=== PATIENT | female | born 1990 | race Caucasian/White ===

== ENCOUNTER 2018-03-21 20:38 | Emergency (ER) | payer MEDICAID ==
[~2018-03-21] VITALS: Ht 154.9 cm; Wt 51.7 kg
[~2018-03-21 20:38] MED LIST: POLY17PO10 PO
[2018-03-21 22:40] VITALS: BP 118/60
== END 2018-03-21 22:41 | disposition home or self-care (01) ==
LOC: ER 20:39
DX: G47.00 Insomnia, unspecified (principal); R63.0 Anorexia; F15.10 Other stimulant abuse, uncomplicated; F17.200 Nicotine dependence, unspecified, uncomplicated; F12.10 Cannabis abuse, uncomplicated; Z59.0 Homelessness; Z98.890 Other specified postprocedural states; Z79.899 Other long term (current) drug therapy
CPT/HCPCS: 99283

== ENCOUNTER 2019-11-03 11:14 | Inpatient (IN) | payer MEDICAID ==
[~2019-11-03] VITALS: Ht 167.6 cm; Wt 59.0 kg
[2019-11-03] MEDS ORDERED: dexamethasone sod phosphate 10mg/ml inj IV STA (12:44)
[2019-11-03] MEDS ORDERED: CLINDAMYCIN/D5W 900mg/50ml 50 ML IV ONE (12:45)
[2019-11-03] MEDS ORDERED: normal saline 1000ML IV soln IV ONE (12:50)
[2019-11-03] MEDS ORDERED: ketorolac tromethamine 15mg/ml inj. IV ONE (12:50)
[2019-11-03 13:03] LABS: CLARITY,URINE SLIGHTLY CLOUDY (Clear); COLOR,URINE YELLOW (Yellow); GLUCOSE, URINE NEGATIVE (Neg); KETONES,URINE 40 mg/dl (Neg); LEUKOCYTE ESTERASE ,URINE NEGATIVE (Neg); NITRITES, URINE NEGATIVE (Neg); OCCULT BLOOD,URINE NEGATIVE (Neg); PROTEIN,URINE NEGATIVE (Neg); UROBILINOGEN,URINE 0.2 E.U/dL (0.2-1.0)
[2019-11-03 13:04] LABS: UA COLLECTION TYPE CLN CATCH MIDSTREAM
[2019-11-03 13:09] LABS: BACTERIA,URINE 1+ /HPF (Neg); COARSE GRANULAR CAST 0-3 /LPF (NEGATIVE); MUCUS STRANDS MANY /LPF (Neg); RBC,URINE 0-2 /HPF (0-2); SQUAMOUS EPITHELIAL CELL,UR MODERATE /LPF (FEW); WBC,URINE 0-4 /HPF (0-4)
[2019-11-03 13:09] LABS: ALANINE AMINOTRANSFERASE 22 U/L (12-78); ALBUMIN 3.9 G/DL (3.4-5.0); ALBUMIN/GLOBULIN RATIO 1.1 (1.1-1.5); ALKALINE PHOSPHATASE 86 IU/L (46-116); ANION GAP 10 (8-16); ASPARTATE AMINO TRANSFERASE 14 U/L (10-37); BILIRUBIN,TOTAL 0.8 MG/DL (0.1-1.0); BLOOD UREA NITROGEN 17 MG/DL (7-18); BUN/CREATININE RATIO 18.9 (6.6-38.0); CALCIUM 9.7 MG/DL (8.5-10.1); CHLORIDE 99 MMOL/L (99-107); GLUCOSE 81 MG/DL (70-104); POTASSIUM 3.6 MMOL/L (3.5-5.1); SODIUM 136 MMOL/L (135-145); TOTAL CARBON DIOXIDE 27.2 MMOL/L (24-32); TOTAL PROTEIN 7.5 G/DL (6.4-8.2); eGFR 73 ML/MIN
[2019-11-03 13:10] LABS: BASOPHILS # (AUTO) 0.1 X10'3 (0-0.2); BASOPHILS % (AUTO) 0.3 % (0-1); EOSINOPHILS % (AUTO) 0 % (0-6); HEMATOCRIT 40.7 % (35.0-45.0); HEMOGLOBIN 13.9 g/dl (12.0-16.0); LYMPHOCYTES # (AUTO) 0.2 X10'3 (1.1-4.8); LYMPHOCYTES % (AUTO) 0.6 % (21-51); MEAN CORPUSCULAR HEMOGLOBIN 31.1 PG (27.0-31.0); MEAN CORPUSCULAR HGB CONC 34.2 g/dL (33.0-36.5); MEAN CORPUSCULAR VOLUME 91.1 FL (78-98); MEAN PLATELET VOLUME 7.5 FL (7.4-10.4); MONOCYTES # (AUTO) 0.7 X10'3 (0-0.9); MONOCYTES % (AUTO) 1.9 % (2-12); NEUTROPHILS # (AUTO) 33.7 X10'3 (1.8-7.7); NEUTROPHILS % (AUTO) 97.2 % (42-75); PLATELET COUNT 444 X10'3 (140-440); RED BLOOD COUNT 4.47 X10'6 (4.20-5.60); RED CELL DISTRIBUTION WIDTH 12.5 % (11.5-14.5)
[2019-11-03 13:14] LABS: WHITE BLOOD COUNT 34.7 X10'3 (4.5-11.0)
[2019-11-03] MEDS ORDERED: acetaminophen 325mg tablet PO ONE (13:25)
[2019-11-03 14:00] LABS: TOTAL CELLS COUNTED 100
[2019-11-03 14:02] LABS: PLATELET ESTIMATE INCREASED
[2019-11-03 14:03] LABS: TOXIC GRANULATION 1+
[2019-11-03] MEDS ORDERED: iohexol 300mg/ml 100ml inj. ONE (14:11)
--- NOTE | 2019-11-03 14:20 | NUR ---
Pt transported to CT scan via w/c.
[2019-11-03] MEDS ORDERED: NO HOME MEDS (16:02)
[2019-11-03] MEDS ORDERED: potassium Cl 20 mEq SR tablet PO PRN ×2 (16:45)
[2019-11-03] MEDS ORDERED: magnesium hydroxide 30ml (MOM) UD suspension PO PRN (16:45)
[2019-11-03] MEDS ORDERED: magnesium 4gm in 100ml NS 100 ML IV PRN (16:45)
[2019-11-03] MEDS ORDERED: ondansetron/PF 4mg/2ml inj IV PRN (16:45)
[2019-11-03] MEDS ORDERED: morphine 2 MG/ML inj. syringe IV PRN ×2 (16:45)
[2019-11-03] MEDS ORDERED: acetaminophen 325mg tablet PO PRN ×2 (16:45)
[2019-11-03] MEDS ORDERED: potassium CL 10mEq/100ml bag 100 ML IV PRN ×2 (16:45)
[2019-11-03] MEDS ORDERED: magnesium 2GM in 50ml NS 50 ML IV PRN (16:45)
[2019-11-03] MEDS ORDERED: mag hydrox/Alum hydrox/simeth 30ml oral suspension PO PRN (16:45)
[2019-11-03] MEDS ORDERED: normal saline 1000ml 1,000 ML IV ONE (16:45)
[2019-11-03] MEDS: HYDROcodone/acetaminophen 5mg/325mg tablet PO PRN ×2 (18:14→22:26)
[2019-11-03 19:18] LABS: URINE HCG NEGATIVE (NEG)
[2019-11-03] MEDS ORDERED: CefTRIAXone/D5W-Rocephin 1gm 50 ML IV ONE (19:40)
[2019-11-03 20:00] VITALS: BP 94/52
[2019-11-03] MEDS ORDERED: famotidine 10mg tablet PO SCH (20:00)
[2019-11-03] MEDS: K and/or MAG REPLACEMENT MC SCH (20:00)
--- NOTE | 2019-11-03 21:00 | NUR ---
UNABLE TO SCAN [facility]. PHARMACY NOTIFIED MEDICATION WRAPER SENT TO PHARMACY TO CORRECT ISSUE
[2019-11-03] MEDS: lactobacillus rhamnosus 10,000 MMU CELLS/CAPSULE PO SCH (21:02)
[2019-11-03] MEDS: ketorolac trometh. 30mg/ml inj. IV PRN (21:05)
[2019-11-03] MEDS ORDERED: famotidine 10mg tablet PO ONE ×2 (21:15→21:20)
--- NOTE | 2019-11-03 22:00 | NUR ---
Patient has a rash on bilateral anterior thighs. [facility], req [facility] consult. Placed in contact precautions until contagiousness ruled out.
[2019-11-03] MEDS: clindamycin 300mg/D5W 50mL 50 ML IV SCH (22:29)
[2019-11-04] VITALS (9 sets, daily range): BP systolic 73–96; BP diastolic 37–62
--- NOTE | 2019-11-04 00:33 | NUR ---
NOTIFIED OF COCCI IN CHAINS IN AROBIC AND ANAROBIC BOTTLES
[2019-11-04] MEDS: clindamycin 300mg/D5W 50mL 50 ML IV SCH ×4 (02:07→18:23)
[2019-11-04] MEDS: HYDROcodone/acetaminophen 5mg/325mg tablet PO PRN ×2 (02:07→17:57)
[2019-11-04 05:18] LABS: ALBUMIN 2.5 G/DL (3.4-5.0); ANION GAP 7 (8-16); BLOOD UREA NITROGEN 18 MG/DL (7-18); BUN/CREATININE RATIO 18.8 (6.6-38.0); CALCIUM 8.5 MG/DL (8.5-10.1); CHLORIDE 103 MMOL/L (99-107); CREATININE 0.96 MG/DL (0.40-0.90); GLUCOSE 104 MG/DL (70-104); MAGNESIUM 1.4 MG/DL (1.5-2.4); POTASSIUM 3.5 MMOL/L (3.5-5.1); SODIUM 134 MMOL/L (135-145); TOTAL CARBON DIOXIDE 23.8 MMOL/L (24-32); eGFR 68 ML/MIN
[2019-11-04 05:32] LABS: BASOPHILS % (AUTO) 0.1 % (0-1); EOSINOPHILS % (AUTO) 0 % (0-6); HEMATOCRIT 32.8 % (35.0-45.0); HEMOGLOBIN 11.1 g/dl (12.0-16.0); LYMPHOCYTES # (AUTO) 0.4 X10'3 (1.1-4.8); LYMPHOCYTES % (AUTO) 1.1 % (21-51); MEAN CORPUSCULAR HEMOGLOBIN 31.1 PG (27.0-31.0); MEAN CORPUSCULAR VOLUME 91.4 FL (78-98); MEAN PLATELET VOLUME 7.5 FL (7.4-10.4); MONOCYTES # (AUTO) 0.6 X10'3 (0-0.9); MONOCYTES % (AUTO) 1.7 % (2-12); NEUTROPHILS # (AUTO) 33.4 X10'3 (1.8-7.7); NEUTROPHILS % (AUTO) 97.1 % (42-75); PLATELET COUNT 335 X10'3 (140-440); RED BLOOD COUNT 3.58 X10'6 (4.20-5.60); RED CELL DISTRIBUTION WIDTH 12.5 % (11.5-14.5)
--- NOTE | 2019-11-04 06:15 | NUR ---
Patient in room [facility] 344. I have received report from KARL Navarro and had the opportunity to ask questions and assume patient care.
--- NOTE | 2019-11-04 06:38 | NUR ---
Problems reprioritized. Patient report given, questions answered & plan of care reviewed with KARL Benson.
[2019-11-04 06:46] LABS: WHITE BLOOD COUNT 34.5 X10'3 (4.5-11.0)
--- NOTE | 2019-11-04 07:13 | NUR ---
GOT A CRITICAL WBC OF 34.5, PAGED DR SANCHEZ, AWAITING CALL BACK PAGER ID: [phone] MESSAGE: Tay NAZARIO RM 344B: PATIENT HAS A CRITICAL WBC AT 34.5. THANK BEST [phone]
[2019-11-04] MEDS: K and/or MAG REPLACEMENT MC SCH ×2 (08:00→20:00)
[2019-11-04] MEDS: lactobacillus rhamnosus 10,000 MMU CELLS/CAPSULE PO SCH ×2 (08:06→19:34)
[2019-11-04] MEDS: ibuprofen tablet 400 MG TABLET PO SCH ×3 (08:07→19:34)
[2019-11-04] MEDS: magnesium Cl slow-release 64mg tablet PO PRN ×2 (08:08→22:23)
[2019-11-04] MEDS: famotidine 10mg tablet PO SCH ×2 (08:28→19:35)
--- NOTE | 2019-11-04 08:29 | NUR ---
YUMIKO CARBAJAL MED ADMINISTRATION: MED WOULD NOT SCAN PER PHARMACY: 2 RN VERIFIED DOSE TO GIVE TWO TABS 10MG EACH TO MAKE 20 MG
[2019-11-04 08:38] LABS: PLATELET ESTIMATE NORMAL; TOTAL CELLS COUNTED 100
[2019-11-04 08:40] LABS: TOXIC GRANULATION 1+; TOXIC VACUOLATION FEW
--- NOTE | 2019-11-04 09:33 | NUR ---
PATIENT'S BP IS LOW 80/50 MANUALLY, TEMP IS 99.[address] SANCHEZ PAGER ID: [phone] MESSAGE: Tay NAZARIO 344B: LOW BP: PATIENT'S BP IS TRENDING DOWN FROM 100'S TO NOW AT 80'S, TEMP 99.4 AND WBC 34.5. PLS CALL THANKS BEST [phone]
--- NOTE | 2019-11-04 09:51 | NUR ---
CRITICAL LAB: GRAM POSITIVE COCCI IN PAIRS AND CHAINS IN AREOBIC BOTTLE FROM LT ARM AT 12 HOURS: 3RD POSITIVE BOTTLE TODAY, PAGED DR SANCHEZ, AWAITING CALL BACK PAGER ID: [phone] MESSAGE: Dominguez NAZARIO 344B: CRITICAL LAB: GRAM POSITIVE COCCI IN PAIRS AND CHAINS IN AREOBIC BOTTLE FROM LT ARM AT 12 HOURS: 3RD POSITIVE BOTTLE TODAY
[2019-11-04] MEDS ORDERED: normal saline 1000ml 1,000 ML IVB ONE ×2 (11:52→19:08)
[2019-11-04] MEDS ORDERED: normal saline 1000ml 1,000 ML IV ONE ×3 (11:55→18:10)
[2019-11-04] MEDS: vancomycin/NS 1 GM ADD-VANTAGE 250 ML IV SCH (12:50)
[2019-11-04] MEDS ORDERED: Permethrin Cream 60gm TP ONE (17:20)
[2019-11-04] MEDS ORDERED: dexamethasone sod phosphate 10mg/ml inj IV STA (18:14)
[2019-11-04] MEDS ORDERED: iohexol 300mg/ml 100ml inj. ONE (18:38)
--- NOTE | 2019-11-04 18:45 | NUR ---
Patient in room [facility] 344. I have received report from KARL Benson and had the opportunity to ask questions and assume patient care.
[2019-11-04] MEDS: normal saline 1000ml 1,000 ML IV SCH (19:09)
[2019-11-04] MEDS: CefTRIAXone/D5W-Rocephin 1gm 50 ML IV SCH (19:10)
--- NOTE | 2019-11-04 19:29 | NUR ---
PATIENT'S 0700 BP WAS 83/55 RETOOK AND IT WAS 83/46 AND 79/ 49 TOOK MANUALLY IT WAS 80 OB Addendum: 11/04/19 at 1944 by Kelley Bravo RN 80/50. PAGED DR SANCHEZ, HE CALLED AND ORDERED A 2 LITTER BOLUS AND VANCO. GOT THE BOLUS STARTED PUT PATIENTS HEAD DOWN, RETOOK VITALS AT 1100 IT WAS 88/54. WAS RUNNING VANCO AND BOLUS AT SAME TIME HAD TO LOWER VTBI OF BOLUS SO VANCO WOULD RUN WITHOUT PROBLEM. IN THE 1400 HOUR I ATTEMPTED TO START ANOTHER IV TO RUN ABX SEPARATE FROM BOLUS WITHOUT SUCCESS, GOT PICC NURSE TO PACE NEW IV. LAST BOLUS ENDED AROUND [address] SANCHEZ, HE CALLED RIGHT BACK HE ORDERED ANOTHER BOLUS, I ASKED HIM TO COME SEE THE PATIENT AND PASSED THE INFORMATION TO MY CHARGE NURSE, DR SANCHEZ CAME TO ASSESS PATIENT HE ORDERED DECADRON AND CT OF HEAD AND NECK WITH CONTRAST. PATIENT TAKEN TO CT AND I PASSED PATIENT TO KARL ENGEL.
[2019-11-04] MEDS ORDERED: normal saline 1000ml 1,000 ML IVB PRN (20:45)
--- NOTE | 2019-11-04 20:49 | NUR ---
Rosalind from Dr. Villavicencio in Radiologist called to speak with patients MD. Message hand delivered to Dr. Garcia for him to call the radiologist back.
[2019-11-04] MEDS: ketorolac trometh. 30mg/ml inj. IV PRN (22:32)
[2019-11-05] MEDS: vancomycin/NS 1 GM ADD-VANTAGE 250 ML IV SCH ×2 (01:17→13:31)
[2019-11-05] MEDS: clindamycin 300mg/D5W 50mL 50 ML IV SCH ×4 (03:17→19:56)
[2019-11-05] MEDS: normal saline 1000ml 1,000 ML IV SCH ×4 (03:17→21:37)
[2019-11-05 03:30] VITALS: BP 87/53
[2019-11-05] MEDS ORDERED: normal saline 500ml IV soln 500 ML IV ONE (03:35)
[2019-11-05 04:48] VITALS: BP 90/58
[2019-11-05 05:02] LABS: BASOPHILS % (AUTO) 0 % (0-1); EOSINOPHILS % (AUTO) 0 % (0-6); HEMATOCRIT 31.1 % (35.0-45.0); HEMOGLOBIN 10.5 g/dl (12.0-16.0); LYMPHOCYTES # (AUTO) 0.4 X10'3 (1.1-4.8); LYMPHOCYTES % (AUTO) 1.2 % (21-51); MEAN CORPUSCULAR HEMOGLOBIN 31.3 PG (27.0-31.0); MEAN CORPUSCULAR HGB CONC 33.8 g/dL (33.0-36.5); MEAN CORPUSCULAR VOLUME 92.7 FL (78-98); MEAN PLATELET VOLUME 7.6 FL (7.4-10.4); MONOCYTES # (AUTO) 0.4 X10'3 (0-0.9); MONOCYTES % (AUTO) 1.4 % (2-12); NEUTROPHILS % (AUTO) 97.4 % (42-75); PLATELET COUNT 261 X10'3 (140-440); RED BLOOD COUNT 3.36 X10'6 (4.20-5.60); RED CELL DISTRIBUTION WIDTH 12.9 % (11.5-14.5)
[2019-11-05 05:09] LABS: WHITE BLOOD COUNT 29.8 X10'3 (4.5-11.0)
[2019-11-05 05:20] LABS: ANION GAP 7 (8-16); BLOOD UREA NITROGEN 15 MG/DL (7-18); BUN/CREATININE RATIO 19.5 (6.6-38.0); CALCIUM 8.4 MG/DL (8.5-10.1); CHLORIDE 111 MMOL/L (99-107); CREATININE 0.77 MG/DL (0.40-0.90); GLUCOSE 133 MG/DL (70-104); POTASSIUM 4.2 MMOL/L (3.5-5.1); SODIUM 139 MMOL/L (135-145); TOTAL CARBON DIOXIDE 20.9 MMOL/L (24-32); eGFR 87 ML/MIN
--- NOTE | 2019-11-05 06:23 | NUR ---
Problems reprioritized. Patient report given, questions answered & plan of care reviewed with KARL Baumann.
[2019-11-05 06:31] LABS: PLATELET ESTIMATE NORMAL; TOTAL CELLS COUNTED 100
[2019-11-05 06:32] LABS: BURR CELLS 2+; SCHISTOCYTES FEW
[2019-11-05 06:33] LABS: TOXIC GRANULATION 1+; TOXIC VACUOLATION FEW
[2019-11-05] MEDS: lactobacillus rhamnosus 10,000 MMU CELLS/CAPSULE PO SCH ×2 (07:41→19:56)
[2019-11-05] MEDS: famotidine 10mg tablet PO SCH ×2 (07:41→19:56)
[2019-11-05] MEDS: ibuprofen tablet 400 MG TABLET PO SCH ×3 (07:42→18:04)
[2019-11-05 07:53] VITALS: BP 93/72
[2019-11-05] MEDS: K and/or MAG REPLACEMENT MC SCH ×2 (08:00→20:00)
[2019-11-05 09:30] VITALS: BP 98/60
[2019-11-05 11:47] VITALS: BP 95/57
--- NOTE | 2019-11-05 14:54 | NUR ---
I have reviewed and agree with all interventions, assessments performed and documented by KARL Ozuna
[2019-11-05] MEDS: ketorolac trometh. 30mg/ml inj. IV PRN ×2 (15:33→21:46)
[2019-11-05] MEDS: CefTRIAXone/D5W-Rocephin 1gm 50 ML IV SCH (18:05)
[2019-11-05 18:15] VITALS: BP 108/74
--- NOTE | 2019-11-05 18:29 | NUR ---
Patient in room [facility] 344. I have received report from Sulma RN and Ibis RN and had the opportunity to ask questions and assume patient care.
--- NOTE | 2019-11-05 18:38 | NUR ---
Problems reprioritized. Patient report given, questions answered & plan of care reviewed with Bonita BARAJAS.
[2019-11-05] MEDS: HYDROcodone/acetaminophen 5mg/325mg tablet PO PRN (19:56)
[2019-11-05] MEDS ORDERED: diphenhydrAMINE 50 mg/ml inj IV PRN (21:05)
[2019-11-05] MEDS: diphenhydrAMINE 25mg capsule PO PRN (21:15)
[2019-11-05] MEDS: Melatonin 3mg tablet PO SCH (21:15)
[2019-11-06] MEDS: vancomycin/NS 1 GM ADD-VANTAGE 250 ML IV SCH (00:07)
[2019-11-06 00:15] VITALS: BP 112/71
[2019-11-06] MEDS ORDERED: VANCOMYCIN LEVEL IV ONE (00:30)
[2019-11-06 01:02] LABS: BASOPHILS % (AUTO) 0.2 % (0-1); EOSINOPHILS % (AUTO) 0.1 % (0-6); LYMPHOCYTES # (AUTO) 1.2 X10'3 (1.1-4.8); LYMPHOCYTES % (AUTO) 5.2 % (21-51); MEAN CORPUSCULAR HEMOGLOBIN 31.2 PG (27.0-31.0); MEAN CORPUSCULAR HGB CONC 34.5 g/dL (33.0-36.5); MEAN CORPUSCULAR VOLUME 90.4 FL (78-98); MEAN PLATELET VOLUME 8.3 FL (7.4-10.4); MONOCYTES # (AUTO) 0.3 X10'3 (0-0.9); MONOCYTES % (AUTO) 1.5 % (2-12); NEUTROPHILS # (AUTO) 20.6 X10'3 (1.8-7.7); PLATELET COUNT 260 X10'3 (140-440); RED BLOOD COUNT 3.21 X10'6 (4.20-5.60); WHITE BLOOD COUNT 22.1 X10'3 (4.5-11.0)
[2019-11-06 01:13] LABS: ANION GAP 7 (8-16); BLOOD UREA NITROGEN 18 MG/DL (7-18); BUN/CREATININE RATIO 25.4 (6.6-38.0); CALCIUM 8.4 MG/DL (8.5-10.1); CHLORIDE 109 MMOL/L (99-107); CREATININE 0.71 MG/DL (0.40-0.90); GLUCOSE 90 MG/DL (70-104); MAGNESIUM 1.6 MG/DL (1.5-2.4); POTASSIUM 3.8 MMOL/L (3.5-5.1); SODIUM 138 MMOL/L (135-145); TOTAL CARBON DIOXIDE 21.8 MMOL/L (24-32); VANCOMYCIN,TROUGH 7.9 UG/ML (6.0-14.0); eGFR > 90 ML/MIN
[2019-11-06] MEDS: clindamycin 300mg/D5W 50mL 50 ML IV SCH ×2 (02:29→08:42)
[2019-11-06] MEDS: HYDROcodone/acetaminophen 5mg/325mg tablet PO PRN (02:39)
[2019-11-06] MEDS: diphenhydrAMINE 25mg capsule PO PRN ×3 (02:39→19:03)
--- NOTE | 2019-11-06 06:37 | NUR ---
Problems reprioritized. Patient report given, questions answered & plan of care reviewed with KARL Corona.
--- NOTE | 2019-11-06 06:40 | NUR ---
Patient in room [facility] 344. I have received report from Bonita BARAJAS and had the opportunity to ask questions and assume patient care.
[2019-11-06 07:05] VITALS: BP 109/75
[2019-11-06] MEDS: K and/or MAG REPLACEMENT MC SCH ×2 (07:36→19:14)
[2019-11-06] MEDS: lactobacillus rhamnosus 10,000 MMU CELLS/CAPSULE PO SCH ×2 (08:42→19:03)
[2019-11-06] MEDS: ibuprofen tablet 400 MG TABLET PO SCH ×3 (08:42→17:09)
[2019-11-06] MEDS: famotidine 10mg tablet PO SCH ×2 (08:42→19:03)
[2019-11-06] MEDS: ketorolac trometh. 30mg/ml inj. IV PRN ×2 (08:45→19:04)
[2019-11-06 11:11] VITALS: BP 114/77
[2019-11-06] MEDS ORDERED: iohexol 300mg/ml 100ml inj. ONE (11:21)
[2019-11-06 18:00] VITALS: BP 107/79
--- NOTE | 2019-11-06 18:32 | NUR ---
Problems reprioritized. Patient report given, questions answered & plan of care reviewed with Sabino BARAJAS.
[2019-11-06] MEDS: Melatonin 3mg tablet PO SCH (21:32)
[2019-11-07] VITALS: BP 110/80
[2019-11-07] MEDS: HYDROcodone/acetaminophen 5mg/325mg tablet PO PRN (01:59)
[2019-11-07 06:22] LABS: BASOPHILS % (AUTO) 0.3 % (0-1); EOSINOPHILS # (AUTO) 0.1 X10'3 (0-0.9); EOSINOPHILS % (AUTO) 0.7 % (0-6); HEMATOCRIT 29.4 % (35.0-45.0); HEMOGLOBIN 10.3 g/dl (12.0-16.0); LYMPHOCYTES # (AUTO) 1.5 X10'3 (1.1-4.8); LYMPHOCYTES % (AUTO) 15.4 % (21-51); MEAN CORPUSCULAR HGB CONC 35.1 g/dL (33.0-36.5); MEAN PLATELET VOLUME 7.9 FL (7.4-10.4); MONOCYTES # (AUTO) 0.5 X10'3 (0-0.9); MONOCYTES % (AUTO) 4.9 % (2-12); NEUTROPHILS # (AUTO) 7.7 X10'3 (1.8-7.7); NEUTROPHILS % (AUTO) 78.7 % (42-75); PLATELET COUNT 283 X10'3 (140-440); RED BLOOD COUNT 3.23 X10'6 (4.20-5.60); RED CELL DISTRIBUTION WIDTH 13.1 % (11.5-14.5); WHITE BLOOD COUNT 9.8 X10'3 (4.5-11.0)
[2019-11-07 06:28] LABS: ANION GAP 7 (8-16); BLOOD UREA NITROGEN 16 MG/DL (7-18); BUN/CREATININE RATIO 23.2 (6.6-38.0); CALCIUM 8.4 MG/DL (8.5-10.1); CHLORIDE 107 MMOL/L (99-107); CREATININE 0.69 MG/DL (0.40-0.90); GLUCOSE 71 MG/DL (70-104); MAGNESIUM 1.8 MG/DL (1.5-2.4); POTASSIUM 3.9 MMOL/L (3.5-5.1); SODIUM 138 MMOL/L (135-145); TOTAL CARBON DIOXIDE 23.6 MMOL/L (24-32); eGFR > 90 ML/MIN
--- NOTE | 2019-11-07 06:28 | NUR ---
Problems reprioritized. Patient report given, questions answered & plan of care reviewed with Tiffanie BARAJAS.
[2019-11-07 07:00] VITALS: BP 128/73
[2019-11-07] MEDS: K and/or MAG REPLACEMENT MC SCH ×2 (08:00→19:30)
[2019-11-07 08:36] LABS: PLATELET ESTIMATE NORMAL; TOTAL CELLS COUNTED 100
[2019-11-07] MEDS: levoFLOXACIN-Levaquin 500mg/D5 100 ML IV SCH (09:11)
[2019-11-07] MEDS: lactobacillus rhamnosus 10,000 MMU CELLS/CAPSULE PO SCH ×2 (09:12→19:19)
[2019-11-07] MEDS: ibuprofen tablet 400 MG TABLET PO SCH (09:12)
[2019-11-07] MEDS: famotidine 10mg tablet PO SCH ×2 (09:12→19:19)
--- NOTE | 2019-11-07 11:00 | NUR ---
Pt. c/o rash getting worse although labs look clinically better. aware. This nurse's first day with pt. Called tele to see if pt. had anything significant occur on the monitor. tap and die maker technician stated HR 64 and pt. has been in SR with some sinus arrhythmias. MD and charge aware. Orders to DC tele monitor. Additional procalcitonin ordered. Pt. c/o upper abd. pain. MD aware- see new orders.
[2019-11-07] MEDS ORDERED: ibuprofen tablet 400 MG TABLET PO PRN (11:10)
[2019-11-07] MEDS: pantoprazole 40mg Tablet.DR PO SCH (11:30)
[2019-11-07 11:42] VITALS: BP 122/77
[2019-11-07 18:00] VITALS: BP 118/78
--- NOTE | 2019-11-07 18:35 | NUR ---
Patient in room [facility] 344. I have received report from KARL Moreno and had the opportunity to ask questions and assume patient care.
--- NOTE | 2019-11-07 18:56 | NUR ---
Gave report to Jin BARAJAS.
[2019-11-07] MEDS: diphenhydrAMINE 25mg capsule PO PRN (19:19)
[2019-11-07] MEDS: Melatonin 3mg tablet PO SCH (20:59)
[2019-11-07] MEDS: ketorolac tromethamine 15mg/ml inj. IV PRN (21:00)
[2019-11-08] VITALS: BP 116/70
[2019-11-08] MEDS ORDERED: VANCOMYCIN LEVEL IV ONE ×2 (00:30→12:30)
[2019-11-08 01:49] LABS: BASOPHILS % (AUTO) 0.5 % (0-1); EOSINOPHILS # (AUTO) 0.1 X10'3 (0-0.9); EOSINOPHILS % (AUTO) 0.9 % (0-6); HEMATOCRIT 29.9 % (35.0-45.0); HEMOGLOBIN 10.4 g/dl (12.0-16.0); LYMPHOCYTES # (AUTO) 1.8 X10'3 (1.1-4.8); LYMPHOCYTES % (AUTO) 20.1 % (21-51); MEAN CORPUSCULAR HEMOGLOBIN 31.2 PG (27.0-31.0); MEAN CORPUSCULAR HGB CONC 34.9 g/dL (33.0-36.5); MEAN CORPUSCULAR VOLUME 89.6 FL (78-98); MEAN PLATELET VOLUME 7.6 FL (7.4-10.4); MONOCYTES # (AUTO) 0.6 X10'3 (0-0.9); MONOCYTES % (AUTO) 6.3 % (2-12); NEUTROPHILS # (AUTO) 6.4 X10'3 (1.8-7.7); NEUTROPHILS % (AUTO) 72.2 % (42-75); PLATELET COUNT 337 X10'3 (140-440); RED BLOOD COUNT 3.34 X10'6 (4.20-5.60); RED CELL DISTRIBUTION WIDTH 12.9 % (11.5-14.5); WHITE BLOOD COUNT 8.8 X10'3 (4.5-11.0)
[2019-11-08 01:57] LABS: ANION GAP 7 (8-16); BLOOD UREA NITROGEN 14 MG/DL (7-18); BUN/CREATININE RATIO 20.3 (6.6-38.0); CALCIUM 8.4 MG/DL (8.5-10.1); CHLORIDE 107 MMOL/L (99-107); CREATININE 0.69 MG/DL (0.40-0.90); GLUCOSE 81 MG/DL (70-104); MAGNESIUM 1.9 MG/DL (1.5-2.4); POTASSIUM 3.9 MMOL/L (3.5-5.1); SODIUM 139 MMOL/L (135-145); TOTAL CARBON DIOXIDE 25.1 MMOL/L (24-32); VANCOMYCIN,TROUGH 11.1 UG/ML (6.0-14.0); eGFR > 90 ML/MIN
[2019-11-08 02:47] LABS: PLATELET ESTIMATE NORMAL; TOTAL CELLS COUNTED 100
--- NOTE | 2019-11-08 06:34 | NUR ---
Problems reprioritized. Patient report given, questions answered & plan of care reviewed with KARL Perry.
--- NOTE | 2019-11-08 06:34 | NUR ---
Patient in room [facility] 344. I have received report from Jin BARAJAS and had the opportunity to ask questions and assume patient care.
[2019-11-08 07:07] VITALS: BP 123/71
[2019-11-08] MEDS: lactobacillus rhamnosus 10,000 MMU CELLS/CAPSULE PO SCH (08:09)
[2019-11-08] MEDS: levoFLOXACIN-Levaquin 500mg/D5 100 ML IV SCH (08:10)
[2019-11-08] MEDS: famotidine 10mg tablet PO SCH (08:10)
[2019-11-08] MEDS: pantoprazole 40mg Tablet.DR PO SCH (08:10)
[2019-11-08] MEDS: ketorolac tromethamine 15mg/ml inj. IV PRN (08:19)
[2019-11-08 11:00] VITALS: BP 127/78
[2019-11-08] MEDS ORDERED: LEVO500T2 PO (11:14)
[2019-11-08] MEDS ORDERED: OMEP-297 PO (11:14)
[2019-11-08] MEDS ORDERED: ACET-2144 PO (11:14)
--- NOTE | 2019-11-08 12:30 | NUR ---
Pt Dc to home. Pt A & O and in no distress. pt packed all belongings and carried them out with her. pt verbalizes understanding of all DC orders and is aware that all meds are e-faxed to [facility]. Pt is wheeled out via wheelchair and her friend came to lobby to pick her up.
== END 2019-11-08 12:53 | disposition home or self-care (01) | DRG 720 ==
LOC: ER 11:15 → ED HOLD 17:14 → SUR 3N 20:04
PROVIDERS: ADMIT Hospitalist; ATTEND Internal Medicine
PROC: B0201ZZ Computerized Tomography (CT Scan) of Brain using Low Osmolar Contrast (ICD-10-PCS; principal; 2019-11-04)
DX: A41.9 Sepsis, unspecified organism (principal); R65.21 Severe sepsis with septic shock; L03.221 Cellulitis of neck; R13.10 Dysphagia, unspecified; R59.0 Localized enlarged lymph nodes; Z59.0 Homelessness
CPT/HCPCS: 36415; 70460; 70487; 70491; 76937; 80048; 80053; 80202; 81001; 81025; 83605; 83735; 84145; 85025; 87040; 87077; 87081; 87186; 96365; 96375; 99285; G0378; J0696; J1100; J1200; J1885; J1956; J2270; J2405; J3370; J3490; J7030; J7040; Q0163; Q9967

== ENCOUNTER 2020-01-15 07:22 | Emergency (ER) | payer MEDICAID ==
[~2020-01-15] VITALS: Ht 167.6 cm; Wt 62.5 kg
[~2020-01-15 07:22] MED LIST changes: +OMEP20CA15 PO; -POLY17PO10 PO
--- NOTE | 2020-01-15 09:33 | NUR ---
TEMP RE-CHECK 102.9. ADVISED.
[2020-01-15] MEDS ORDERED: acetaminophen 325mg tablet PO ONE ×2 (09:35→09:40)
[2020-01-15 09:44] LABS: CLARITY,URINE SLIGHTLY CLOUDY (Clear); COLOR,URINE YELLOW (Yellow); GLUCOSE, URINE NEGATIVE (Neg); KETONES,URINE NEGATIVE (Neg); LEUKOCYTE ESTERASE ,URINE NEGATIVE (Neg); NITRITES, URINE NEGATIVE (Neg); OCCULT BLOOD,URINE TRACE-INTACT (Neg); PH,URINE 7.5 (4.8-8.0); PROTEIN,URINE NEGATIVE (Neg); UROBILINOGEN,URINE 0.2 E.U/dL (0.2-1.0)
[2020-01-15 09:46] LABS: UA COLLECTION TYPE CLN CATCH MIDSTREAM
[2020-01-15 09:49] LABS: URINE HCG NEGATIVE (NEG)
[2020-01-15 09:58] LABS: MUCUS STRANDS FEW /LPF (Neg); SQUAMOUS EPITHELIAL CELL,UR MODERATE /LPF (FEW)
[2020-01-15 09:59] LABS: BACTERIA,URINE FEW /HPF (Neg); RBC,URINE 0-2 /HPF (0-2); WBC,URINE 0-4 /HPF (0-4)
[2020-01-15] MEDS ORDERED: TAM75C PO (10:08)
[2020-01-15] MEDS ORDERED: IBUP-1984 PO (10:08)
[2020-01-15 10:30] VITALS: BP 140/88
== END 2020-01-15 10:42 | disposition home or self-care (01) ==
LOC: ER 07:23
DX: J10.1 Influenza due to other identified influenza virus with other respiratory manifestations (principal); F12.90 Cannabis use, unspecified, uncomplicated; F15.90 Other stimulant use, unspecified, uncomplicated; Z98.890 Other specified postprocedural states; Z59.0 Homelessness; Z56.0 Unemployment, unspecified; Z79.899 Other long term (current) drug therapy
CPT/HCPCS: 81001; 81025; 87502; 87503; 99283

== ENCOUNTER 2023-03-07 17:17 | Emergency (ER) | payer MEDICAID ==
[~2023-03-07] VITALS: Ht 167.6 cm; Wt 72.0 kg
[2023-03-07 17:29] VITALS: BP 139/97
[2023-03-07] MEDS ORDERED: NAPR-56 PO (22:35)
== END 2023-03-07 17:49 ==
LOC: ER 17:17
DX: Z00.00 Encounter for general adult medical examination without abnormal findings (principal); F12.90 Cannabis use, unspecified, uncomplicated; F15.90 Other stimulant use, unspecified, uncomplicated; Z59.00 Homelessness unspecified; Z56.0 Unemployment, unspecified; Z72.89 Other problems related to lifestyle; Z98.890 Other specified postprocedural states; Z79.899 Other long term (current) drug therapy
CPT/HCPCS: 99283

== ENCOUNTER 2023-03-07 20:46 | Emergency (ER) | payer MEDICAID ==
[~2023-03-07] VITALS: Ht 167.6 cm; Wt 72.7 kg
[2023-03-07 21:18] LABS: BASOPHILS # (AUTO) 0.1 X10'3 (0-0.2); BASOPHILS % (AUTO) 0.5 % (0-1); EOSINOPHILS % (AUTO) 0.1 % (0-6); HEMATOCRIT 43.9 % (35.0-45.0); HEMOGLOBIN 14.6 g/dl (12.0-16.0); LYMPHOCYTES # (AUTO) 2.4 X10'3 (1.1-4.8); LYMPHOCYTES % (AUTO) 15.1 % (21-51); MEAN CORPUSCULAR HEMOGLOBIN 30.9 PG (27.0-31.0); MEAN CORPUSCULAR HGB CONC 33.3 g/dL (33.0-36.5); MEAN PLATELET VOLUME 7.6 FL (7.4-10.4); MONOCYTES # (AUTO) 0.7 X10'3 (0-0.9); MONOCYTES % (AUTO) 4.4 % (2-12); NEUTROPHILS # (AUTO) 12.9 X10'3 (1.8-7.7); NEUTROPHILS % (AUTO) 79.9 % (42-75); PLATELET COUNT 438 X10'3 (140-440); RED BLOOD COUNT 4.72 X10'6 (4.20-5.60); RED CELL DISTRIBUTION WIDTH 13.8 % (11.5-14.5); WHITE BLOOD COUNT 16.2 X10'3 (4.5-11.0)
[2023-03-07] MEDS ORDERED: iohexol 350 MG/ML 50ML vial IV ONE (21:19)
[2023-03-07] MEDS ORDERED: iohexol 350MG/ML 100ml bottle IV ONE (21:19)
[2023-03-07 21:29] LABS: ALANINE AMINOTRANSFERASE 40 U/L (12-78); ALBUMIN 3.9 G/DL (3.4-5.0); ALBUMIN/GLOBULIN RATIO 1.1 (1.1-1.5); ALKALINE PHOSPHATASE 124 IU/L (46-116); ANION GAP 12 (8-16); ASPARTATE AMINO TRANSFERASE 35 U/L (10-37); BILIRUBIN,TOTAL 0.4 MG/DL (0.1-1.0); BLOOD UREA NITROGEN 9 MG/DL (7-18); CALCIUM 9.1 MG/DL (8.5-10.1); CHLORIDE 105 MMOL/L (99-107); GLUCOSE 89 MG/DL (70-104); POTASSIUM 3.3 MMOL/L (3.5-5.1); SODIUM 141 MMOL/L (135-145); TOTAL CARBON DIOXIDE 23.6 MMOL/L (24-32); TOTAL PROTEIN 7.3 G/DL (6.4-8.2); eGFR > 90 ML/MIN
[2023-03-07 21:34] LABS: APTT 29 SECONDS (22-32)
[2023-03-07 21:36] LABS: ETHANOL 0.115 GM/DL (0.0-0.010)
[2023-03-07 22:23] LABS: URINE AMPHETAMINE SCREEN POSITIVE (Neg); URINE BARBITUATE SCREEN NEGATIVE (Neg); URINE BENZODIAZEPINES SCREEN NEGATIVE (Neg); URINE CANNABINOID SCREEN POSITIVE (Neg); URINE COCAINE SCREEN NEGATIVE (Neg); URINE METHADONE SCREEN NEGATIVE (Neg); URINE OPIATE SCREEN NEGATIVE (Neg); URINE PHENCYCLIDINE SCREEN NEGATIVE (Neg)
[2023-03-07] MEDS ORDERED: NAPR-56 PO (22:35)
[2023-03-07 22:50] VITALS: BP 133/91
== END 2023-03-07 23:11 | disposition home or self-care (01) ==
LOC: ER 20:47
DX: S42.002A Fracture of unspecified part of left clavicle, initial encounter for closed fracture (principal); F12.90 Cannabis use, unspecified, uncomplicated; F15.20 Other stimulant dependence, uncomplicated; Z56.0 Unemployment, unspecified; Z59.00 Homelessness unspecified; V89.2XXA Person injured in unspecified motor-vehicle accident, traffic, initial encounter; Y93.89 Activity, other specified; Y92.89 Other specified places as the place of occurrence of the external cause; Y99.8 Other external cause status
CPT/HCPCS: 36415; 70498; 71045; 71275; 80053; 80305; 80320; 83880; 84484; 85025; 85610; 85730; 86885; 86900; 86901; 93005; 99285; J3490; Q9967

== ENCOUNTER 2023-04-04 14:10 | Emergency (ER) | payer MEDICAID ==
[~2023-04-04] VITALS: Ht 175.3 cm; Wt 63.6 kg
[~2023-04-04 14:10] MED LIST changes: +NAPR-56 PO
[2023-04-04 14:14] VITALS: BP 140/102
== END 2023-04-04 15:51 | disposition home or self-care (01) ==
LOC: ER 14:10
DX: L98.8 Other specified disorders of the skin and subcutaneous tissue (principal); R42 Dizziness and giddiness; F12.90 Cannabis use, unspecified, uncomplicated; F15.20 Other stimulant dependence, uncomplicated; Z59.00 Homelessness unspecified; Z56.0 Unemployment, unspecified
CPT/HCPCS: 99283

== ENCOUNTER 2023-04-13 09:03 | Emergency (ER) | payer MEDICAID ==
[~2023-04-13] VITALS: Ht 167.6 cm; Wt 72.7 kg
[~2023-04-13 09:03] MED LIST changes: -NAPR-56 PO
[2023-04-13 09:18] VITALS: BP 139/91
[2023-04-13] MEDS ORDERED: BUPR1FIL3 SL (10:24)
--- NOTE | 2023-04-13 10:27 | NUR ---
SUBSTANCE USE NAVIGATOR PAGED FOR FTE
--- NOTE | 2023-04-13 10:36 | NUR ---
Met with patient in regards to substance use and to see if patient was interested in resources for treatment options. Patient is here for medical clearance. Patient would like to start Suboxone. Phillip started patient and I gave patient a card for [facility] to continue it. I gave patient a list of outpatient treatment options and my card to call me with any questions.
[2023-04-13] MEDS ORDERED: CIPR10DR LEFT EAR (10:53)
[2023-04-14] MEDS ORDERED: SULF1TAB49 PO (12:05)
[2023-04-14] MEDS ORDERED: CEPH-585 PO (12:05)
== END 2023-04-13 10:43 | disposition home or self-care (01) ==
LOC: ER 09:04
DX: H60.92 Unspecified otitis externa, left ear (principal); F19.10 Other psychoactive substance abuse, uncomplicated; F17.200 Nicotine dependence, unspecified, uncomplicated; F12.90 Cannabis use, unspecified, uncomplicated; F15.90 Other stimulant use, unspecified, uncomplicated; Z72.89 Other problems related to lifestyle; Z59.00 Homelessness unspecified; Z56.0 Unemployment, unspecified; Z79.899 Other long term (current) drug therapy
CPT/HCPCS: 99283

== ENCOUNTER 2023-04-14 10:11 | Emergency (ER) | payer MEDICAID ==
[~2023-04-14] VITALS: Ht 167.6 cm; Wt 65.0 kg
[~2023-04-14 10:11] MED LIST changes: +BUPR1FIL3 SL; +CIPR10DR LEFT EAR
[2023-04-14 10:20] VITALS: BP 105/71
[2023-04-14] MEDS ORDERED: CEPH-585 PO (12:05)
[2023-04-14] MEDS ORDERED: CefTRIAXone 1000mg IM Kit (w/lidocaine diluent) IM ONE (12:05)
[2023-04-14] MEDS ORDERED: SULF1TAB49 PO (12:05)
--- NOTE | 2023-04-14 12:56 | NUR ---
[facility] called for transport. ETA 15 minutes.
== END 2023-04-14 12:56 | disposition home or self-care (01) ==
LOC: ER 10:12
DX: H60.12 Cellulitis of left external ear (principal); F12.10 Cannabis abuse, uncomplicated; F15.10 Other stimulant abuse, uncomplicated; Z59.00 Homelessness unspecified; Z56.0 Unemployment, unspecified; Z79.899 Other long term (current) drug therapy
CPT/HCPCS: 96372; 99283; J0696

== ENCOUNTER 2023-04-18 19:45 | Emergency (ER) | payer MEDICAID ==
[~2023-04-18] VITALS: Ht 167.6 cm; Wt 60.0 kg
[~2023-04-18 19:45] MED LIST changes: +CEPH-585 PO; +SULF1TAB49 PO
[2023-04-18 19:53] VITALS: BP 144/102
== END 2023-04-18 21:12 | disposition home or self-care (01) ==
LOC: ER 19:47
DX: R21 Rash and other nonspecific skin eruption (principal); H92.02 Otalgia, left ear; F12.10 Cannabis abuse, uncomplicated; F15.10 Other stimulant abuse, uncomplicated; Z59.00 Homelessness unspecified; Z56.0 Unemployment, unspecified; Z79.899 Other long term (current) drug therapy
CPT/HCPCS: 99281

== ENCOUNTER 2023-05-10 13:31 | Inpatient (IN) | payer MEDICAID ==
[~2023-05-10] VITALS: Ht 167.6 cm; Wt 50.0 kg
[~2023-05-10 13:31] MED LIST changes: -BUPR1FIL3 SL; -CIPR10DR LEFT EAR; -SULF1TAB49 PO
[2023-05-10 16:06] LABS: BASOPHILS # (AUTO) 0.1 X10'3 (0-0.2); EOSINOPHILS % (AUTO) 0.2 % (0-6); HEMOGLOBIN 15.2 g/dl (12.0-16.0); MEAN PLATELET VOLUME 6.9 FL (7.4-10.4); NEUTROPHILS # (AUTO) 5.9 X10'3 (1.8-7.7)
[2023-05-10 16:08] LABS: BASOPHILS % (AUTO) 0.6 % (0-1); HEMATOCRIT 46.2 % (35.0-45.0); LYMPHOCYTES # (AUTO) 2.2 X10'3 (1.1-4.8); LYMPHOCYTES % (AUTO) 24.4 % (21-51); MEAN CORPUSCULAR HEMOGLOBIN 29.3 PG (27.0-31.0); MEAN CORPUSCULAR HGB CONC 32.8 g/dL (33.0-36.5); MEAN CORPUSCULAR VOLUME 89.4 FL (78-98); MONOCYTES # (AUTO) 0.9 X10'3 (0-0.9); MONOCYTES % (AUTO) 9.4 % (2-12); NEUTROPHILS % (AUTO) 65.4 % (42-75); PLATELET COUNT 720 X10'3 (140-440); RED BLOOD COUNT 5.17 X10'6 (4.20-5.60); RED CELL DISTRIBUTION WIDTH 14.5 % (11.5-14.5); WHITE BLOOD COUNT 9.1 X10'3 (4.5-11.0)
[2023-05-10 16:10] LABS: CLARITY,URINE CLOUDY (Clear); COLOR,URINE YELLOW (Yellow); GLUCOSE, URINE NEGATIVE (Neg); KETONES,URINE NEGATIVE (Neg); LEUKOCYTE ESTERASE ,URINE NEGATIVE (Neg); NITRITES, URINE NEGATIVE (Neg); OCCULT BLOOD,URINE NEGATIVE (Neg); PH,URINE 5.5 (4.8-8.0); PROTEIN,URINE NEGATIVE (Neg); UROBILINOGEN,URINE 0.2 E.U/dL (0.2-1.0)
[2023-05-10 16:15] LABS: UA COLLECTION TYPE CLN CATCH MIDSTREAM
--- NOTE | 2023-05-10 16:15 | NUR ---
PER CLEANED WOUND WITH NS, PUT XEROFORM ON WOUND AND ISLAND DRESSING OVER TOP.
[2023-05-10 16:16] LABS: MUCUS STRANDS MANY /LPF (Neg); SQUAMOUS EPITHELIAL CELL,UR MANY /LPF (FEW)
[2023-05-10 16:17] LABS: BACTERIA,URINE 1+ /HPF (Neg); CAL OXALATE CRYSTALS 2+ /HPF (NEGATIVE); RBC,URINE 0-2 /HPF (0-2); WBC,URINE 0-4 /HPF (0-4)
[2023-05-10 16:18] LABS: HYALINE CASTS 0-3 /LPF (NEGATIVE)
[2023-05-10 16:35] LABS: ALANINE AMINOTRANSFERASE 59 U/L (12-78); ALBUMIN 4.1 G/DL (3.4-5.0); ALBUMIN/GLOBULIN RATIO 0.9 (1.1-1.5); ALKALINE PHOSPHATASE 155 IU/L (46-116); ANION GAP 8 (8-16); ASPARTATE AMINO TRANSFERASE 38 U/L (10-37); BILIRUBIN,TOTAL 0.5 MG/DL (0.1-1.0); BLOOD UREA NITROGEN 18 MG/DL (7-18); CALCIUM 10.3 MG/DL (8.5-10.1); CHLORIDE 99 MMOL/L (99-107); CREATININE 0.75 MG/DL (0.40-0.90); GLUCOSE 84 MG/DL (70-104); POTASSIUM 3.6 MMOL/L (3.5-5.1); SODIUM 136 MMOL/L (135-145); TOTAL CARBON DIOXIDE 29.4 MMOL/L (24-32); TOTAL PROTEIN 8.6 G/DL (6.4-8.2); eGFR 88 ML/MIN
[2023-05-10] MEDS ORDERED: cephalexin 500mg capsule PO ONE (16:45)
[2023-05-10] MEDS ORDERED: CefTRIAXone 2gm/D5W 50ml BAG 50 ML IV ONE (16:55)
[2023-05-10] MEDS ORDERED: FIBER PO ×2 (17:02)
[2023-05-10] MEDS ORDERED: LOPE2CAP PO ×2 (17:02)
[2023-05-10] MEDS ORDERED: NO HOME MEDS (17:27)
[2023-05-10] MEDS ORDERED: acetaminophen 325mg tablet PO PRN (19:45)
[2023-05-10] MEDS ORDERED: ondansetron/PF 4mg/2ml inj IV PRN (19:45)
[2023-05-10] MEDS ORDERED: magnesium hydroxide 30ml (MOM) UD suspension PO PRN (19:45)
[2023-05-10] MEDS ORDERED: mag hydrox/Alum hydrox/simeth 30ml oral suspension PO PRN (19:45)
[2023-05-10] MEDS: docusate sod 100mg capsule PO SCH (20:00)
[2023-05-11 07:05] VITALS: BP 127/82
[2023-05-11] MEDS: docusate sod 100mg capsule PO SCH ×2 (08:00→19:33)
[2023-05-11] MEDS: CefTRIAXone/D5W-Rocephin 1gm 50 ML IV SCH (08:58)
[2023-05-11 10:00] VITALS: BP 128/82
--- NOTE | 2023-05-11 11:40 | NUR ---
Per Dr. Ya wound care consult order entered and wound care team notified.
--- NOTE | 2023-05-11 14:57 | NUR ---
Noted pt BMI of 17.8 in EMR. Pt admit for Osteomyelitis found to have an infected L clavicle after an injury 2 months ago per H&P. Pt with a hx of amphetamine abuse , heroin abuse ,and currently homeless per H&P. Pt currently on a regular diet eating 100% x 2 meals. Pt agreeable to interview during time of visit. Pt reports recent wt loss but unsure of the amounts and unsure of her current wt. Pt states UBW was 180 pounds in but unsure how long she weighed that amount prior. Pt report no recent changes in intake nor appetite and usually eats 3 meals a day. Unreliable wt hx, pending scaled wt this admit. Pt appeared well nourished, likely slender at baseline, and no signs of muscle/fat wasting at this time. Pt does not meet a minimum of two malnutrition criteria at this time. Pt reports no chewing/swallowing difficulties and no food allergies. LBM on 05/11 with diarrhea with ordered bowel care but not given per EMR. Will continue to monitor. Addendum: 05/11/23 at [address] Amended: Links added. Addendum: 05/11/23 at [address] ALEX has reviewed and approves of above note.
[2023-05-11 18:00] VITALS: BP 135/73
--- NOTE | 2023-05-11 18:00 | NUR ---
Patient in room ORTHO 4009. I have received report from KARL Moore and had the opportunity to ask questions and assume patient care.
--- NOTE | 2023-05-11 18:27 | NUR ---
Problems reprioritized. Patient report given, questions answered & plan of care reviewed with KARL Mullen.
[2023-05-11] MEDS: HYDROcodone/acetaminophen 5mg/325mg tablet PO PRN (19:44)
[2023-05-11 22:00] VITALS: BP 112/76
[2023-05-12 06:00] VITALS: BP 108/72
--- NOTE | 2023-05-12 06:27 | NUR ---
Problems reprioritized. Patient report given, questions answered & plan of care reviewed with KARL Moore.
--- NOTE | 2023-05-12 06:29 | NUR ---
Patient in room ORTHO 4009. I have received report from KARL Mullen and had the opportunity to ask questions and assume patient care.
[2023-05-12] MEDS: docusate sod 100mg capsule PO SCH ×2 (07:05→22:18)
[2023-05-12] MEDS: CefTRIAXone/D5W-Rocephin 1gm 50 ML IV SCH (07:07)
[2023-05-12 10:00] VITALS: BP 122/80
[2023-05-12] MEDS: HYDROcodone/acetaminophen 5mg/325mg tablet PO PRN ×2 (10:15→20:55)
--- NOTE | 2023-05-12 13:17 | NUR ---
PAGER ID: [phone] MESSAGE: Teresa [phone] RE: Maribel Jc room 4009B - need signature on PICC line form so she can go to [facility]
--- NOTE | 2023-05-12 14:35 | NUR ---
WOUND INFECTION EDUCATION PROVIDED BY WOUND CARE 1. Patient instructed to call their primary doctor, or go the ED immediately if any of the following symptoms occur: * Increased pain in wound * Increase in drainage from the wound * Redness in the skin surrounding the wound * Warmth in the skin surrounding the wound * Bleeding from the wound * Temperature of 101 or greater 2. If any of these occur while in the hospital tell a nurse immediately. Addendum: 05/12/23 at 1436 by Dina Diaz LVN Amended: Links added.
[2023-05-12 18:00] VITALS: BP 121/83
--- NOTE | 2023-05-12 18:35 | NUR ---
Problems reprioritized. Patient report given, questions answered & plan of care reviewed with KARL Bell.
--- NOTE | 2023-05-12 18:40 | NUR ---
Patient in room ORTHO 4009. I have received report from KARL TABOR and had the opportunity to ask questions and assume patient care.
[2023-05-12 22:00] VITALS: BP 114/73
[2023-05-12] MEDS: traZODone 50mg tablet PO SCH (22:18)
[2023-05-13 06:00] VITALS: BP 111/75
--- NOTE | 2023-05-13 06:24 | NUR ---
Problems reprioritized. Patient report given, questions answered & plan of care reviewed with KARL VINCENT.
--- NOTE | 2023-05-13 06:28 | NUR ---
Patient in room ORTHO 4009. I have received report from KARL Bell and had the opportunity to ask questions and assume patient care.
[2023-05-13 07:49] LABS: HBSAG SCREEN Negative (Negative); HEP B CORE AB, TOT Negative (Negative)
[2023-05-13] MEDS: docusate sod 100mg capsule PO SCH ×2 (08:00→20:00)
[2023-05-13] MEDS: ESCITALOPRAM OXALATE 5 MG TABLET PO SCH (08:08)
[2023-05-13] MEDS: CefTRIAXone/D5W-Rocephin 1gm 50 ML IV SCH (08:08)
[2023-05-13 10:00] VITALS: BP 113/81
[2023-05-13] MEDS: HYDROcodone/acetaminophen 5mg/325mg tablet PO PRN ×2 (16:26→21:58)
[2023-05-13 18:00] VITALS: BP 128/72
--- NOTE | 2023-05-13 18:14 | NUR ---
Patient in room ORTHO 4009. I have received report from CARLTON BARAJAS and had the opportunity to ask questions and assume patient care.
--- NOTE | 2023-05-13 18:16 | NUR ---
Problems reprioritized. Patient report given, questions answered & plan of care reviewed with KARL Arroyo.
[2023-05-13] MEDS: traZODone 50mg tablet PO SCH (21:57)
[2023-05-14 06:00] VITALS: BP 115/76
--- NOTE | 2023-05-14 06:25 | NUR ---
Patient in room [facility]THO 4009. I have received report from KARL Arroyo and had the opportunity to ask questions and assume patient care.
--- NOTE | 2023-05-14 06:30 | NUR ---
Problems reprioritized. Patient report given, questions answered & plan of care reviewed with EDELMIRA BARAJAS.
[2023-05-14] MEDS: CefTRIAXone/D5W-Rocephin 1gm 50 ML IV SCH (07:53)
[2023-05-14] MEDS: docusate sod 100mg capsule PO SCH ×2 (08:40→19:41)
[2023-05-14] MEDS: ESCITALOPRAM OXALATE 5 MG TABLET PO SCH (08:40)
[2023-05-14 10:00] VITALS: BP 117/74
[2023-05-14] MEDS: HYDROcodone/acetaminophen 5mg/325mg tablet PO PRN (17:49)
[2023-05-14 18:00] VITALS: BP 121/85
[2023-05-14] MEDS: traZODone 50mg tablet PO SCH (20:28)
[2023-05-14 22:00] VITALS: BP 112/65
--- NOTE | 2023-05-15 00:02 | NUR ---
Problems reprioritized. Patient report given, questions answered & plan of care reviewed with KARL Gee.
[2023-05-15] MEDS: HYDROcodone/acetaminophen 5mg/325mg tablet PO PRN (04:52)
[2023-05-15 06:00] VITALS: BP 115/62
--- NOTE | 2023-05-15 06:28 | NUR ---
Problems reprioritized. Received report from KARL Gee; questions answered & plan of care reviewed.
[2023-05-15] MEDS: docusate sod 100mg capsule PO SCH ×3 (07:24→08:00)
[2023-05-15] MEDS: ESCITALOPRAM OXALATE 5 MG TABLET PO SCH (07:24)
[2023-05-15] MEDS: CefTRIAXone/D5W-Rocephin 1gm 50 ML IV SCH (08:52)
--- NOTE | 2023-05-15 10:00 | NUR ---
Initial: Pt admit DX L neck abscess, sternocleidomastoid pyomyositis, and clavicular osteomyelitis s/p debridement w/ clavicular fx per EMR. PO mostly ~100% regular diet meeting estimated needs. LBM two on 05/13 refusing routine colace per EMR. No nutrition interventions at this time. Will continue to follow. Rec: 1. continue regular diet 2. routine bowel care 3. scaled wt this admit; subsequent weekly wt Addendum: 05/15/23 at [address] Amended: Links added.
--- NOTE | 2023-05-15 12:45 | NUR ---
Called [facility] LTACH unit and relayed the report of the pt to KARL Ruiz. Reviewed patients plan of care and necessities for continuing care. Will place a copy in patients chart.
--- NOTE | 2023-05-15 15:25 | NUR ---
Patient was discharged to [facility] unit. Report relayed to [facility] transfer services and the nurse on the unit named KARL Ruiz. Reviewed patients plan of care that has been initiated. Stable, no acute distress at this time. Patients PICC is capped with alcohol swabbed caps. Belongings transferred with pt/ [facility] personal. IV of the left AC d/c'd with cannula intact. Packet of information of transfer of care sent along as well.
== END 2023-05-15 15:00 | DRG 344 ==
LOC: ER 13:32 → ED HOLD 19:44 → ORTHO 4S 05-11 07:00
PROVIDERS: ADMIT Internal Medicine; ATTEND Internal Medicine
PROC: 02HV33Z Insertion of Infusion Device into Superior Vena Cava, Percutaneous Approach (ICD-10-PCS; principal; 2023-05-15)
PROC: B548ZZA Ultrasonography of Superior Vena Cava, Guidance (ICD-10-PCS; 2023-05-15)
DX: M86.18 Other acute osteomyelitis, other site (principal); M60.08 Infective myositis, other site; L02.11 Cutaneous abscess of neck; D75.839 Thrombocytosis, unspecified; F32.A Depression, unspecified; G47.00 Insomnia, unspecified; B95.1 Streptococcus, group B, as the cause of diseases classified elsewhere; F19.10 Other psychoactive substance abuse, uncomplicated; Z59.00 Homelessness unspecified; Z80.0 Family history of malignant neoplasm of digestive organs; Z80.7 Family history of other malignant neoplasms of lymphoid, hematopoietic and related tissues; Z82.49 Family history of ischemic heart disease and other diseases of the circulatory system; Z83.3 Family history of diabetes mellitus; Z56.0 Unemployment, unspecified; Z79.899 Other long term (current) drug therapy; S42.002K Fracture of unspecified part of left clavicle, subsequent encounter for fracture with nonunion
CPT/HCPCS: 36415; 71045; 80053; 81001; 83605; 84145; 85025; 85651; 86140; 86704; 86705; 86706; 87040; 87081; 87340; 99285; A6212; A6222; A6446; A6449; G0378; J0696; J7030; J7040

== ENCOUNTER 2023-09-24 06:27 | Inpatient (IN) | payer MEDICAID ==
[~2023-09-24] VITALS: Ht 167.6 cm; Wt 74.6 kg
[~2023-09-24 06:27] MED LIST changes: -CEPH-585 PO; +NO HOME MEDS; -OMEP20CA15 PO
[2023-09-24 07:16] LABS: BASOPHILS # (AUTO) 0.1 X10'3 (0-0.2); BASOPHILS % (AUTO) 0.4 % (0-1); EOSINOPHILS # (AUTO) 0.1 X10'3 (0-0.9); EOSINOPHILS % (AUTO) 0.5 % (0-6); HEMATOCRIT 29.1 % (35.0-45.0); HEMOGLOBIN 9.9 g/dl (12.0-16.0); LYMPHOCYTES # (AUTO) 1.3 X10'3 (1.1-4.8); LYMPHOCYTES % (AUTO) 9.6 % (21-51); MEAN CORPUSCULAR HEMOGLOBIN 30.9 PG (27.0-31.0); MEAN CORPUSCULAR HGB CONC 33.9 g/dL (33.0-36.5); MEAN CORPUSCULAR VOLUME 91.3 FL (78-98); MEAN PLATELET VOLUME 6.4 FL (7.4-10.4); MONOCYTES # (AUTO) 0.4 X10'3 (0-0.9); MONOCYTES % (AUTO) 2.6 % (2-12); NEUTROPHILS # (AUTO) 11.9 X10'3 (1.8-7.7); NEUTROPHILS % (AUTO) 86.9 % (42-75); PLATELET COUNT 561 X10'3 (140-440); RED BLOOD COUNT 3.19 X10'6 (4.20-5.60); RED CELL DISTRIBUTION WIDTH 15.4 % (11.5-14.5); WHITE BLOOD COUNT 13.7 X10'3 (4.5-11.0)
[2023-09-24 07:36] LABS: ALANINE AMINOTRANSFERASE 10 U/L (12-78); ALBUMIN 3.5 G/DL (3.4-5.0); ALKALINE PHOSPHATASE 76 IU/L (46-116); AMYLASE 44 U/L (25-115); ANION GAP 9 (8-16); ASPARTATE AMINO TRANSFERASE 18 U/L (10-37); BILIRUBIN,TOTAL 0.2 MG/DL (0.1-1.0); BLOOD UREA NITROGEN 9 MG/DL (7-18); BUN/CREATININE RATIO 12.2 (10.0-20.0); CHLORIDE 100 MMOL/L (99-107); CREATININE 0.74 MG/DL (0.40-0.90); GLUCOSE 94 MG/DL (70-104); LIPASE 17 U/L (16-77); POTASSIUM 3.3 MMOL/L (3.5-5.1); SODIUM 138 MMOL/L (135-145); TOTAL CARBON DIOXIDE 28.8 MMOL/L (24-32); eCRCL 99 ML/MIN; eGFR 89 ML/MIN
[2023-09-24 10:22] LABS: URINE HCG NEGATIVE (NEG)
[2023-09-24 10:24] LABS: BILIRUBIN,URINE NEGATIVE (Neg); CLARITY,URINE CLOUDY (Clear); COLOR,URINE YELLOW (Yellow); GLUCOSE, URINE NEGATIVE (Neg); KETONES,URINE NEGATIVE (Neg); LEUKOCYTE ESTERASE ,URINE SMALL (Neg); NITRITES, URINE NEGATIVE (Neg); OCCULT BLOOD,URINE NEGATIVE (Neg); PH,URINE 5.5 (4.8-8.0); PROTEIN,URINE NEGATIVE (Neg); UROBILINOGEN,URINE 0.2 E.U/dL (0.2-1.0)
[2023-09-24] MEDS ORDERED: pantoprazole 40mg IV 80 MG in normal saline 100ml IV soln 100 ML IV ONE (10:25)
[2023-09-24] MEDS ORDERED: LORazepam 2 mg/ml vial IV ONE (10:25)
[2023-09-24] MEDS ORDERED: normal saline 1000ML IV soln IVB ONE (10:25)
[2023-09-24 10:27] LABS: UA COLLECTION TYPE CLN CATCH MIDSTREAM
[2023-09-24 10:36] LABS: MUCUS STRANDS FEW /LPF (Neg); SQUAMOUS EPITHELIAL CELL,UR FEW /LPF (FEW); TRANSITIONAL EPI CELLS,URINE FEW /HPF
[2023-09-24 10:37] LABS: BACTERIA,URINE FEW /HPF (Neg); RBC,URINE 0-2 /HPF (0-2); WBC CLUMPS,URINE FEW /HPF (NEGATIVE)
[2023-09-24] MEDS ORDERED: CefTRIAXone 2gm/D5W 50ml BAG 50 ML IV ONE (10:50)
[2023-09-24] MEDS ORDERED: potassium Cl 40MEQ/1/2NS 520ml 520 ML IV PRN (10:50)
[2023-09-24] MEDS ORDERED: morphine 2 MG/ML inj. syringe IV PRN ×2 (10:50)
[2023-09-24] MEDS ORDERED: HYDROcodone/acetaminophen 10/325mg tab PO PRN (10:50)
[2023-09-24] MEDS ORDERED: magnesium Cl slow-release 64mg tablet PO PRN (10:50)
[2023-09-24] MEDS ORDERED: HYDROcodone/acetaminophen 5mg/325mg tablet PO PRN (10:50)
[2023-09-24] MEDS ORDERED: ondansetron/PF 4mg/2ml inj IV PRN (10:50)
[2023-09-24] MEDS ORDERED: magnesium 2GM in 50ml NS 50 ML IV PRN (10:50)
[2023-09-24] MEDS ORDERED: potassium Cl 20 mEq SR tablet PO PRN (10:50)
[2023-09-24] MEDS ORDERED: acetaminophen 325mg tablet PO PRN ×2 (10:50)
[2023-09-24] MEDS ORDERED: magnesium 4gm in 100ml NS 100 ML IV PRN (10:50)
[2023-09-24] MEDS ORDERED: pantoprazole 40MG/NS 100ML BAG 100 ML IV ONE ×2 (11:00→11:15)
[2023-09-24] MEDS: normal saline 1000ml 1,000 ML IV SCH ×2 (11:33→22:01)
[2023-09-24 11:51] LABS: OCCULT BLOOD STOOL POSITIVE (Neg)
[2023-09-24] MEDS ORDERED: nicotine 21mg patch - 24 hr TD ONE (12:10)
[2023-09-24 17:22] LABS: BASOPHILS # (AUTO) 0.1 X10'3 (0-0.2); BASOPHILS % (AUTO) 0.6 % (0-1); EOSINOPHILS # (AUTO) 0.1 X10'3 (0-0.9); HEMATOCRIT 25.4 % (35.0-45.0); HEMOGLOBIN 8.7 g/dl (12.0-16.0); LYMPHOCYTES # (AUTO) 1.9 X10'3 (1.1-4.8); LYMPHOCYTES % (AUTO) 20.2 % (21-51); MEAN CORPUSCULAR HEMOGLOBIN 31.5 PG (27.0-31.0); MEAN CORPUSCULAR HGB CONC 34.2 g/dL (33.0-36.5); MEAN CORPUSCULAR VOLUME 92.2 FL (78-98); MEAN PLATELET VOLUME 6.4 FL (7.4-10.4); MONOCYTES # (AUTO) 0.4 X10'3 (0-0.9); MONOCYTES % (AUTO) 4.3 % (2-12); NEUTROPHILS # (AUTO) 7.1 X10'3 (1.8-7.7); NEUTROPHILS % (AUTO) 73.9 % (42-75); PLATELET COUNT 480 X10'3 (140-440); RED BLOOD COUNT 2.76 X10'6 (4.20-5.60); RED CELL DISTRIBUTION WIDTH 16.1 % (11.5-14.5); WHITE BLOOD COUNT 9.6 X10'3 (4.5-11.0)
[2023-09-24] MEDS ORDERED: TRAZ-256 PO (17:53)
[2023-09-24] MEDS ORDERED: BUPR1FIL20 PO (17:53)
[2023-09-24] MEDS ORDERED: ESCI20TA39 PO (17:53)
[2023-09-24] MEDS ORDERED: QUET50TA24 PO (17:53)
[2023-09-24] MEDS ORDERED: BUSP30TA3 PO (17:53)
[2023-09-24] MEDS ORDERED: BUPR1FIL20 SL (18:00)
--- NOTE | 2023-09-24 20:46 | NUR ---
attempted to call report, per nurse on phone they need to move beds around in [place] for pt. will f/u.
[2023-09-24 22:00] VITALS: BP 119/71; PULSE 65; RESP 14; TEMP 98.1; O2SAT 99
[2023-09-24] MEDS: potassium Cl 20 mEq SR tablet PO PRN (22:55)
[2023-09-24] MEDS: QUEtiapine 25mg tablet PO SCH (22:55)
[2023-09-24] MEDS: busPIRone 15mg tablet PO SCH (22:55)
[2023-09-24] MEDS: traZODone 50mg tablet PO SCH (22:55)
[2023-09-24] MEDS: pantoprazole 40MG/NS 100ML BAG 100 ML IV SCH (23:11)
[2023-09-24 23:23] LABS: BILIRUBIN,URINE NEGATIVE (Neg); CLARITY,URINE CLOUDY (Clear); COLOR,URINE YELLOW (Yellow); GLUCOSE, URINE NEGATIVE (Neg); KETONES,URINE NEGATIVE (Neg); LEUKOCYTE ESTERASE ,URINE MODERATE (Neg); NITRITES, URINE NEGATIVE (Neg); OCCULT BLOOD,URINE NEGATIVE (Neg); PROTEIN,URINE NEGATIVE (Neg); UROBILINOGEN,URINE 0.2 E.U/dL (0.2-1.0)
[2023-09-24 23:28] LABS: URINE AMPHETAMINE SCREEN POSITIVE (Neg); URINE BARBITUATE SCREEN NEGATIVE (Neg); URINE BENZODIAZEPINES SCREEN NEGATIVE (Neg); URINE CANNABINOID SCREEN NEGATIVE (Neg); URINE COCAINE SCREEN NEGATIVE (Neg); URINE METHADONE SCREEN NEGATIVE (Neg); URINE OPIATE SCREEN NEGATIVE (Neg); URINE PHENCYCLIDINE SCREEN NEGATIVE (Neg)
[2023-09-24 23:29] LABS: UA COLLECTION TYPE OTHER
[2023-09-24 23:30] LABS: MUCUS STRANDS MANY /LPF (Neg); SQUAMOUS EPITHELIAL CELL,UR MANY /LPF (FEW)
[2023-09-24 23:31] LABS: WBC,URINE 50-100 /HPF (0-4)
[2023-09-24 23:32] LABS: BACTERIA,URINE 2+ /HPF (Neg); RBC,URINE 0-2 /HPF (0-2)
[2023-09-25 00:38] VITALS: RESP 18
[2023-09-25 05:54] LABS: BASOPHILS % (AUTO) 0.8 % (0-1); EOSINOPHILS # (AUTO) 0.1 X10'3 (0-0.9); EOSINOPHILS % (AUTO) 1.6 % (0-6); HEMATOCRIT 23.8 % (35.0-45.0); HEMOGLOBIN 8.1 g/dl (12.0-16.0); LYMPHOCYTES # (AUTO) 1.5 X10'3 (1.1-4.8); LYMPHOCYTES % (AUTO) 29.4 % (21-51); MEAN CORPUSCULAR HEMOGLOBIN 31.6 PG (27.0-31.0); MEAN CORPUSCULAR HGB CONC 34.2 g/dL (33.0-36.5); MEAN CORPUSCULAR VOLUME 92.6 FL (78-98); MEAN PLATELET VOLUME 6.5 FL (7.4-10.4); MONOCYTES # (AUTO) 0.3 X10'3 (0-0.9); MONOCYTES % (AUTO) 5.3 % (2-12); NEUTROPHILS # (AUTO) 3.3 X10'3 (1.8-7.7); NEUTROPHILS % (AUTO) 62.9 % (42-75); PLATELET COUNT 448 X10'3 (140-440); RED BLOOD COUNT 2.57 X10'6 (4.20-5.60); RED CELL DISTRIBUTION WIDTH 15.5 % (11.5-14.5); WHITE BLOOD COUNT 5.3 X10'3 (4.5-11.0)
[2023-09-25 06:00] VITALS: BP 119/66; PULSE 76; RESP 14; TEMP 98.9; O2SAT 97
[2023-09-25 06:17] LABS: PROTHROMBIN TIME 10.4 SECONDS (9.0-12.0)
[2023-09-25 06:23] LABS: ALANINE AMINOTRANSFERASE 16 U/L (12-78); ALBUMIN 2.7 G/DL (3.4-5.0); ALKALINE PHOSPHATASE 61 IU/L (46-116); AMYLASE 36 U/L (25-115); ANION GAP 7 (8-16); ASPARTATE AMINO TRANSFERASE 14 U/L (10-37); BILIRUBIN,TOTAL 0.2 MG/DL (0.1-1.0); BLOOD UREA NITROGEN 5 MG/DL (7-18); BUN/CREATININE RATIO 7.5 (10.0-20.0); CALCIUM 8.4 MG/DL (8.5-10.1); CHLORIDE 107 MMOL/L (99-107); CREATININE 0.67 MG/DL (0.40-0.90); GLUCOSE 81 MG/DL (70-104); MAGNESIUM 1.9 MG/DL (1.5-2.4); PHOSPHORUS 2.5 MG/DL (2.3-4.5); POTASSIUM 3.3 MMOL/L (3.5-5.1); SODIUM 139 MMOL/L (135-145); TOTAL CARBON DIOXIDE 24.6 MMOL/L (24-32); TOTAL PROTEIN 5.3 G/DL (6.4-8.2); eCRCL 110 ML/MIN; eGFR > 90 ML/MIN
--- NOTE | 2023-09-25 06:38 | NUR ---
Problems reprioritized. Patient report given, questions answered & plan of care reviewed with KARL MCCANN.
--- NOTE | 2023-09-25 06:53 | NUR ---
Patient in room ORTHO 4009C. I have received report from KARL Gee, and had the opportunity to ask questions and assume patient care.
[2023-09-25] MEDS: normal saline 1000ml 1,000 ML IV SCH ×2 (09:04→20:02)
[2023-09-25] MEDS: pantoprazole 40MG/NS 100ML BAG 100 ML IV SCH ×2 (09:08→20:02)
[2023-09-25] MEDS: busPIRone 15mg tablet PO SCH ×2 (09:10→20:04)
[2023-09-25] MEDS: QUEtiapine 25mg tablet PO SCH ×2 (09:11→20:04)
[2023-09-25 10:00] VITALS: BP 97/50; PULSE 85; RESP 16; TEMP 99.5; O2SAT 97
--- NOTE | 2023-09-25 11:00 | NUR ---
Per MD resident, pt may have CL diet today, NPO at midnight, and an EGD to be performed in the am. Pt is aware and asked and answered questions.
[2023-09-25] MEDS: potassium Cl 20 mEq SR tablet PO PRN ×2 (15:51→20:13)
[2023-09-25 18:00] VITALS: BP 102/62; PULSE 85; RESP 15; TEMP 98.4; O2SAT 9
--- NOTE | 2023-09-25 18:30 | NUR ---
Patient report given, questions answered & plan of care reviewed with KARL Gee.
[2023-09-25 20:00] VITALS: RESP 15; O2SAT 99
[2023-09-25] MEDS: traZODone 50mg tablet PO SCH (20:03)
[2023-09-25 22:00] VITALS: BP 91/52; PULSE 70; RESP 15; TEMP 98.4; O2SAT 99
[2023-09-26] VITALS (16 sets, daily range): BP systolic 90–131; BP diastolic 42–85; PULSE 63–90; RESP 11–16; TEMP 97.8–98.3; O2SAT 91–100
[2023-09-26] MEDS: normal saline 1000ml 1,000 ML IV SCH ×3 (05:48→20:05)
--- NOTE | 2023-09-26 06:07 | NUR ---
Problems reprioritized. Patient report given, questions answered & plan of care reviewed with KARL MCCANN.
--- NOTE | 2023-09-26 06:30 | NUR ---
Patient in room ORTHO 4009C. I have received report from KARL Gee, and had the opportunity to ask questions and assume patient care.
[2023-09-26 07:13] LABS: BASOPHILS % (AUTO) 0.7 % (0-1); EOSINOPHILS # (AUTO) 0.1 X10'3 (0-0.9); EOSINOPHILS % (AUTO) 1.2 % (0-6); HEMATOCRIT 22.6 % (35.0-45.0); HEMOGLOBIN 7.8 g/dl (12.0-16.0); LYMPHOCYTES # (AUTO) 1.6 X10'3 (1.1-4.8); LYMPHOCYTES % (AUTO) 29.2 % (21-51); MEAN CORPUSCULAR HGB CONC 34.3 g/dL (33.0-36.5); MEAN CORPUSCULAR VOLUME 93.2 FL (78-98); MEAN PLATELET VOLUME 6.7 FL (7.4-10.4); MONOCYTES # (AUTO) 0.4 X10'3 (0-0.9); MONOCYTES % (AUTO) 6.5 % (2-12); NEUTROPHILS # (AUTO) 3.4 X10'3 (1.8-7.7); NEUTROPHILS % (AUTO) 62.4 % (42-75); PLATELET COUNT 431 X10'3 (140-440); RED BLOOD COUNT 2.43 X10'6 (4.20-5.60); RED CELL DISTRIBUTION WIDTH 15.6 % (11.5-14.5); WHITE BLOOD COUNT 5.5 X10'3 (4.5-11.0)
[2023-09-26 07:17] LABS: PROTHROMBIN TIME 10.4 SECONDS (9.0-12.0)
[2023-09-26 07:41] LABS: ALANINE AMINOTRANSFERASE 16 U/L (12-78); ALBUMIN 2.5 G/DL (3.4-5.0); ALBUMIN/GLOBULIN RATIO 0.9 (1.1-1.5); ALKALINE PHOSPHATASE 57 IU/L (46-116); AMYLASE 42 U/L (25-115); ANION GAP 5 (8-16); ASPARTATE AMINO TRANSFERASE 11 U/L (10-37); BILIRUBIN,TOTAL 0.2 MG/DL (0.1-1.0); BLOOD UREA NITROGEN 5 MG/DL (7-18); BUN/CREATININE RATIO 7.1 (10.0-20.0); CALCIUM 8.6 MG/DL (8.5-10.1); CHLORIDE 109 MMOL/L (99-107); GLUCOSE 82 MG/DL (70-104); MAGNESIUM 1.9 MG/DL (1.5-2.4); PHOSPHORUS 2.8 MG/DL (2.3-4.5); POTASSIUM 4.2 MMOL/L (3.5-5.1); SODIUM 139 MMOL/L (135-145); TOTAL CARBON DIOXIDE 25.5 MMOL/L (24-32); TOTAL PROTEIN 5.2 G/DL (6.4-8.2); eCRCL 105 ML/MIN; eGFR > 90 ML/MIN
[2023-09-26] MEDS: busPIRone 15mg tablet PO SCH ×2 (08:07→19:59)
[2023-09-26] MEDS: pantoprazole 40MG/NS 100ML BAG 100 ML IV SCH ×2 (08:07→19:59)
[2023-09-26] MEDS: QUEtiapine 25mg tablet PO SCH ×2 (08:09→19:59)
--- NOTE | 2023-09-26 10:52 | NUR ---
Received order for consult. Met with patient for substance use and to see if patient was interested in resources for treatment options. Patient would like outpatient resources. I gave her a list of resources, [facility] card and my card to call me with any questions.
[2023-09-26] MEDS ORDERED: NORMAL SALINE IV ONE (11:05)
[2023-09-26] MEDS ORDERED: IRON SUCROSE COMPLEX IV ONE (11:05)
[2023-09-26] MEDS ORDERED: LIDOcaine Viscous 15ml cup ONE (12:47)
[2023-09-26] MEDS ORDERED: fentaNYL/PF 50MCG/1 ML 2ML syringe ONE (12:47)
[2023-09-26] MEDS ORDERED: diphenhydrAMINE 50 mg/ml inj ONE (12:47)
[2023-09-26] MEDS ORDERED: MIDAZolam 1 MG/ML 5ML VIAL ONE (12:47)
--- NOTE | 2023-09-26 14:00 | NUR ---
Pt returned to room from GI lab. Dr Giron notified. Pt requesting food.
--- NOTE | 2023-09-26 18:20 | NUR ---
Patient report given, questions answered & plan of care reviewed with KARL Gee.
[2023-09-26] MEDS ORDERED: PANT-47 PO (18:54)
[2023-09-26] MEDS: traZODone 50mg tablet PO SCH (20:00)
[2023-09-27 06:00] VITALS: BP 112/68; PULSE 95; RESP 16; TEMP 98.4; O2SAT 97
--- NOTE | 2023-09-27 06:18 | NUR ---
Problems reprioritized. Patient report given, questions answered & plan of care reviewed with selena Nielsen.
--- NOTE | 2023-09-27 06:27 | NUR ---
Patient in room ORTHO 4009. I have received report from KARL Gee, and had the opportunity to ask questions and assume patient care. Addendum: 09/27/23 at 0633 by Gia Aguilar RN Patient in room ORTHO 4009C. I have received report from KARL Gee, and had the opportunity to ask questions and assume patient care.
[2023-09-27 06:59] LABS: BASOPHILS % (AUTO) 0.5 % (0-1); EOSINOPHILS # (AUTO) 0.1 X10'3 (0-0.9); EOSINOPHILS % (AUTO) 0.9 % (0-6); HEMATOCRIT 23.5 % (35.0-45.0); LYMPHOCYTES # (AUTO) 1.3 X10'3 (1.1-4.8); LYMPHOCYTES % (AUTO) 18.9 % (21-51); MEAN CORPUSCULAR HEMOGLOBIN 31.7 PG (27.0-31.0); MEAN CORPUSCULAR HGB CONC 34.2 g/dL (33.0-36.5); MEAN CORPUSCULAR VOLUME 92.7 FL (78-98); MEAN PLATELET VOLUME 6.7 FL (7.4-10.4); MONOCYTES # (AUTO) 0.4 X10'3 (0-0.9); NEUTROPHILS % (AUTO) 73.7 % (42-75); PLATELET COUNT 412 X10'3 (140-440); RED BLOOD COUNT 2.53 X10'6 (4.20-5.60); RED CELL DISTRIBUTION WIDTH 15.2 % (11.5-14.5); WHITE BLOOD COUNT 6.8 X10'3 (4.5-11.0)
[2023-09-27 07:01] LABS: PROTHROMBIN TIME 10.3 SECONDS (9.0-12.0)
[2023-09-27 07:10] LABS: ALANINE AMINOTRANSFERASE 13 U/L (12-78); ALBUMIN 2.4 G/DL (3.4-5.0); ALKALINE PHOSPHATASE 56 IU/L (46-116); AMYLASE 44 U/L (25-115); ANION GAP 7 (8-16); ASPARTATE AMINO TRANSFERASE 10 U/L (10-37); BLOOD UREA NITROGEN 8 MG/DL (7-18); BUN/CREATININE RATIO 11.4 (10.0-20.0); CALCIUM 9.1 MG/DL (8.5-10.1); CHLORIDE 108 MMOL/L (99-107); GLUCOSE 107 MG/DL (70-104); MAGNESIUM 1.8 MG/DL (1.5-2.4); SODIUM 141 MMOL/L (135-145); TOTAL CARBON DIOXIDE 26.3 MMOL/L (24-32); TOTAL PROTEIN 4.8 G/DL (6.4-8.2); eCRCL 105 ML/MIN; eGFR > 90 ML/MIN
[2023-09-27 07:16] LABS: BILIRUBIN,TOTAL 0.1 MG/DL (0.1-1.0)
[2023-09-27] MEDS: busPIRone 15mg tablet PO SCH (09:47)
[2023-09-27] MEDS: QUEtiapine 25mg tablet PO SCH (09:47)
[2023-09-27] MEDS: pantoprazole 40MG/NS 100ML BAG 100 ML IV SCH (09:53)
[2023-09-27 10:00] VITALS: BP 113/72; PULSE 74; RESP 16; TEMP 97.5; O2SAT 96
[2023-09-27] MEDS ORDERED: pantoprazole 40mg Tablet.DR PO SCH (20:00)
== END 2023-09-27 16:14 | disposition home or self-care (01) | DRG 241 ==
LOC: ER 06:28 → ED HOLD 10:50 → ORTHO 4S 21:35
PROVIDERS: ADMIT Internal Medicine; ATTEND Internal Medicine
PROC: 0DB68ZX Excision of Stomach, Via Natural or Artificial Opening Endoscopic, Diagnostic (ICD-10-PCS; principal; 2023-09-26)
DX: K29.71 Gastritis, unspecified, with bleeding (principal); I50.9 Heart failure, unspecified; D64.9 Anemia, unspecified; F17.200 Nicotine dependence, unspecified, uncomplicated; F32.A Depression, unspecified; F41.9 Anxiety disorder, unspecified; K26.9 Duodenal ulcer, unspecified as acute or chronic, without hemorrhage or perforation; F12.90 Cannabis use, unspecified, uncomplicated; F19.10 Other psychoactive substance abuse, uncomplicated; G89.4 Chronic pain syndrome; E87.6 Hypokalemia; Z80.0 Family history of malignant neoplasm of digestive organs; Z80.7 Family history of other malignant neoplasms of lymphoid, hematopoietic and related tissues; Z56.0 Unemployment, unspecified; Z82.49 Family history of ischemic heart disease and other diseases of the circulatory system; Z83.3 Family history of diabetes mellitus; Z85.72 Personal history of non-Hodgkin lymphomas; Z98.891 History of uterine scar from previous surgery; Z59.00 Homelessness unspecified
CPT/HCPCS: 36415; 43239; 74176; 76700; 80053; 80305; 81001; 81025; 82150; 82272; 83605; 83690; 83735; 84100; 84145; 85025; 85610; 86885; 86900; 86901; 87040; 87081; 87088; 99152; 99285; A4620; C9113; G0378; J0696; J1200; J1756; J2060; J2250; J3010; J7030; J7050

== ENCOUNTER 2023-12-23 18:45 | Emergency (ER) | payer MEDICAID ==
[~2023-12-23] VITALS: Ht 165.1 cm; Wt 67.7 kg
[~2023-12-23 18:45] MED LIST changes: +BUPR1FIL20 PO; +BUPR1FIL20 SL; +BUSP30TA3 PO; +ESCI20TA39 PO; -NO HOME MEDS; +PANT-47 PO; +QUET50TA24 PO; +TRAZ-256 PO
[2023-12-23 19:02] VITALS: BP 127/86; PULSE 91; O2SAT 100
[2023-12-23 19:48] LABS: URINE HCG NEGATIVE (NEG)
[2023-12-23 19:56] LABS: ANION GAP 8 (8-16); BLOOD UREA NITROGEN 16 MG/DL (7-18); BUN/CREATININE RATIO 17.2 (10.0-20.0); CALCIUM 9.8 MG/DL (8.5-10.1); CHLORIDE 106 MMOL/L (99-107); CREATININE 0.93 MG/DL (0.40-0.90); GLUCOSE 112 MG/DL (70-104); LIPASE 32 U/L (16-77); POTASSIUM 3.3 MMOL/L (3.5-5.1); SODIUM 145 MMOL/L (135-145); TOTAL CARBON DIOXIDE 31.4 MMOL/L (24-32); eCRCL 76 ML/MIN; eGFR 69 ML/MIN
[2023-12-23 20:37] LABS: BASOPHILS # (AUTO) 0.1 X10'3 (0-0.2); BASOPHILS % (AUTO) 0.8 % (0-1); EOSINOPHILS % (AUTO) 0.2 % (0-6); HEMATOCRIT 40.7 % (35.0-45.0); HEMOGLOBIN 13.6 g/dl (12.0-16.0); LYMPHOCYTES # (AUTO) 2.5 X10'3 (1.1-4.8); LYMPHOCYTES % (AUTO) 25.3 % (21-51); MEAN CORPUSCULAR HEMOGLOBIN 28.4 PG (27.0-31.0); MEAN CORPUSCULAR HGB CONC 33.3 g/dL (33.0-36.5); MEAN PLATELET VOLUME 8.2 FL (7.4-10.4); MONOCYTES # (AUTO) 0.7 X10'3 (0-0.9); MONOCYTES % (AUTO) 7.1 % (2-12); NEUTROPHILS # (AUTO) 6.6 X10'3 (1.8-7.7); NEUTROPHILS % (AUTO) 66.6 % (42-75); PLATELET COUNT 396 X10'3 (140-440); RED BLOOD COUNT 4.78 X10'6 (4.20-5.60); RED CELL DISTRIBUTION WIDTH 15.9 % (11.5-14.5); WHITE BLOOD COUNT 9.9 X10'3 (4.5-11.0)
[2023-12-23 21:48] LABS: BILIRUBIN,URINE SMALL (Neg); CLARITY,URINE SLIGHTLY CLOUDY (Clear); COLOR,URINE AMBER (Yellow); GLUCOSE, URINE NEGATIVE (Neg); KETONES,URINE TRACE mg/dl (Neg); LEUKOCYTE ESTERASE ,URINE NEGATIVE (Neg); NITRITES, URINE NEGATIVE (Neg); OCCULT BLOOD,URINE LARGE (Neg); PH,URINE 5.5 (4.8-8.0); PROTEIN,URINE NEGATIVE (Neg); UROBILINOGEN,URINE 0.2 E.U/dL (0.2-1.0)
[2023-12-23 21:51] LABS: UA COLLECTION TYPE NON-SPECIFIED
[2023-12-23] MEDS: mag hydrox/Alum hydrox/simeth 30ml oral suspension PO ONE (22:04)
[2023-12-23] MEDS: LIDOcaine Viscous 15ml cup MM PRN (22:05)
[2023-12-23 22:06] VITALS: RESP 16
[2023-12-23 22:19] LABS: MUCUS STRANDS MANY /LPF (Neg); SQUAMOUS EPITHELIAL CELL,UR MODERATE /LPF (FEW)
[2023-12-23 22:20] LABS: CAL OXALATE CRYSTALS 2+ /HPF (NEGATIVE)
[2023-12-23 22:21] LABS: BACTERIA,URINE FEW /HPF (Neg); RBC,URINE NONE SEEN /HPF (0-2); WBC,URINE 0-4 /HPF (0-4)
[2023-12-23 22:39] VITALS: TEMP 98.1
[2023-12-24 05:45] LABS: OCCULT BLOOD STOOL NEGATIVE (Neg)
== END 2023-12-23 22:45 | disposition home or self-care (01) ==
LOC: ER 18:46
DX: R10.31 Right lower quadrant pain (principal); F15.90 Other stimulant use, unspecified, uncomplicated; F12.90 Cannabis use, unspecified, uncomplicated; Z79.899 Other long term (current) drug therapy
CPT/HCPCS: 36415; 80048; 81001; 81025; 82272; 83690; 85025; 99283

== ENCOUNTER 2024-01-07 23:00 | Emergency (ER) | payer MEDICAID ==
[~2024-01-07] VITALS: Ht 167.6 cm; Wt 63.6 kg
[2024-01-07 23:26] VITALS: BP 140/87; PULSE 93; RESP 18; TEMP 98.3; O2SAT 96
[2024-01-08] MEDS: acetaminophen 325mg tablet PO ONE (02:29)
[2024-01-08] MEDS: ibuprofen tablet 400 MG TABLET PO ONE (02:30)
== END 2024-01-08 02:44 | disposition home or self-care (01) ==
LOC: ER 23:01
DX: R21 Rash and other nonspecific skin eruption (principal); F12.90 Cannabis use, unspecified, uncomplicated; F15.90 Other stimulant use, unspecified, uncomplicated; R53.81 Other malaise; M25.572 Pain in left ankle and joints of left foot; M25.472 Effusion, left ankle; Z79.899 Other long term (current) drug therapy; Z98.890 Other specified postprocedural states
CPT/HCPCS: 93005; 99283

== ENCOUNTER 2024-01-13 01:43 | Emergency (ER) | payer MEDICAID ==
[~2024-01-13] VITALS: Ht 167.6 cm; Wt 59.1 kg
[2024-01-13 01:46] VITALS: BP 131/77; PULSE 94; RESP 18; TEMP 98.4; O2SAT 99
[2024-01-13] MEDS ORDERED: AZIT-31 PO (04:06)
[2024-01-13] MEDS ORDERED: PRED50TA PO (04:06)
[2024-01-13] MEDS: prednisone 10mg tablet PO SCH (04:20)
[2024-01-13] MEDS: azithromycin 250mg tablet PO ONE (04:20)
== END 2024-01-13 04:51 | disposition home or self-care (01) ==
LOC: ER 01:43
DX: R05.9 Cough, unspecified (principal); R11.2 Nausea with vomiting, unspecified; F17.200 Nicotine dependence, unspecified, uncomplicated; Z72.89 Other problems related to lifestyle; F12.90 Cannabis use, unspecified, uncomplicated; F15.90 Other stimulant use, unspecified, uncomplicated; Z59.00 Homelessness unspecified; Z79.899 Other long term (current) drug therapy; Z56.0 Unemployment, unspecified
CPT/HCPCS: 99283; J7512

== ENCOUNTER 2024-05-13 11:51 | Emergency (ER) | payer MEDICAID ==
[~2024-05-13] VITALS: Ht 167.6 cm; Wt 75.5 kg
[~2024-05-13 11:51] MED LIST changes: +PRED50TA PO
[2024-05-13] MEDS ORDERED: IBUP-1984 PO (15:47)
[2024-05-13] MEDS ORDERED: CEPH-585 PO (15:47)
[2024-05-13] MEDS: ibuprofen tablet 400 MG TABLET PO ONE (15:56)
[2024-05-13] MEDS: cephalexin 250mg capsule PO ONE (15:58)
[2024-05-13] MEDS: TETanus/Pertussis (Acell)/Diphther VAC/PF (Tdap-Adult) 0.5ml syringe IMVAC ONE (15:58)
[2024-05-13 16:03] VITALS: BP 146/85; PULSE 88; RESP 18; TEMP 98.6; O2SAT 98
== END 2024-05-13 16:05 | disposition home or self-care (01) ==
LOC: ER 11:52
DX: S91.331A Puncture wound without foreign body, right foot, initial encounter (principal); Z79.899 Other long term (current) drug therapy; Z79.2 Long term (current) use of antibiotics; Z79.1 Long term (current) use of non-steroidal anti-inflammatories (NSAID); Z98.890 Other specified postprocedural states; W22.8XXA Striking against or struck by other objects, initial encounter; Y93.89 Activity, other specified; Y92.89 Other specified places as the place of occurrence of the external cause; Y99.8 Other external cause status
CPT/HCPCS: 73630; 90471; 90715; 99283